=== PATIENT | male | born 1930 | race Caucasian/White ===

== ENCOUNTER 2017-11-10 09:44 | Emergency (ER) | payer OTHER ==
[~2017-11-10] VITALS: Ht 167.6 cm; Wt 56.7 kg
[~2017-11-10 09:44] MED LIST: AMLODIPINE10 MG PO; ASPIRIN EC81 M1 PO; ATORVASTATIN CA80 M1 PO; CALCIUM + D SO1 EACH PO; COZAAR 25MG TAB25 MG PO; COZAAR50 M1 PO; ELIGARD22.5 M1 IM; HYDRODIURIL 2525 MG PO; K-DUR 20MEQ TA20 MEQ PO; LASIX40 M1 PO; LASIX40 MG PO; REFRESH TEARS15 ML IO; TOPROL XL50 M1 PO
--- NOTE | 2017-11-10 15:48 | ED MVC/FALL/TRAUMA COMPLAINT ---
History of Present Illness General Chief Complaint: Fall Stated Complaint: FALL LAST WEDNESDAY SEEN LAST WEDNESDAY Source: patient, family, old records Exam Limitations: no limitations Vital Signs & Intake/Output Vital Signs & Intake/Output Vital Signs Date Time Temp Pulse Resp B/P B/P Pulse O2 O2 Flow FiO2 Mean Ox Delivery Rate 11/10 1721 98.2 77 18 156/84 98 Room Air 11/10 1551 97.7 720 18 170/76 98 Room Air ED Intake and Output 11/11 0000 11/10 1200 Intake Total 0 Output Total Balance 0 Intake, Oral 0 Patient 125 lb Weight Weight Reported by Patient Measurement Method Allergies Coded Allergies: rifampin (Severe, CAUSED RENAL FAILURE - DIALYSIS PER MED LIST 06/27/17) Reconcile Medications Aspirin (Ecotrin*) 81 MG TABLET.DR 1 TAB PO DAILY heart (Reported) Atorvastatin Calcium 80 MG TABLET 1 TAB PO DAILY cholestrol (Reported) Calcium Carb/Vitamin D3/Vit K1 (Calcium + D Soft Chewable Tab) 500 MG CALCIUM-1, 000 UNIT-40 MCG TAB.CHEW 1 TAB PO DAILY SUPPLEMENT (Reported) Carboxymethylcellulose Sodium (Refresh Tears) 0.5 % DROPS 1 GTT IO DAILY TEARS (Reported) Furosemide (Lasix) 40 MG TABLET 1.5 TAB PO DAILY CHF Leuprolide Acetate (Eligard) 22.5 MG (3 MONTH) SYRINGE 1 INJ IM [id number] PROSTATE CANCER (Reported) Losartan Potassium (Cozaar) 50 MG TABLET 1 TAB PO DAILY HTN Metoprolol Succ XL (Toprol Xl) 50 MG TAB 50 MG PO DAILY HTN (Reported) Tramadol HCl 50 MG TABLET 0.5 TAB PO BIDP PRN pain Triage Note: 87 YO MALE TO TRIAGE C/O PAIN TO R SHOULDER/CLAVICAL AREA. STATES HE WAS SEEN WEDNESDAY AFTER A FALL AND WAS TOLD HE HAD R SIDED RIB FRACTURES, PT DENIES PAIN TO RIB AREA. STATES HAS BEEN USING A HEATING PAD AND MOTRIN WITHOUT RELIEF. Triage Nurses Notes Reviewed? yes Onset: Abrupt Duration: day(s): (5), constant Timing: recent history Severity: moderate Severity Numbers: 6 Injuries/Fall Location: upper extremity Method of Injury: fall Loss of Consciousness: no loss of consciousness Modifying Factors: Improves With: rest. Worsens With: movement, palpation. Associated Symptoms: deneis HPI: 87-year-old male past medical history of aortic aneurysm, coronary artery disease, hypertension presents with daughter for continued pain x 5 days s/p fall onto r shoulder. was diagnosed with right 5/6th rib fx. xrays of shoulder and lumbar spine were unremarkable. no other injury from fall, no new trauma. no neck or back pain, no pain with breathing, no hemoptysis. no elbow wrist or hand pain,no numbness no tingling. pain in shoulder worse with rom. has been taking tylneol with no effect. (Jone Preston) Past History Travel History Traveled to [place] past 21 day No Medical History Any Pertinent Medical History? 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 No (Jone Preston) Review of Systems Review of Systems Constitutional: Reports: see HPI. Comments Review of systems: See HPI, All other systems negative. Constitutional, no chills no fever, no malaise HEENT: no sore throat no congestion Cardiovascular: No chest pain , no palpitation Skin: no rashes, no change in skin Respiratory: No dyspnea no cough no sputum no hemoptysis GI: No nausea no vomiting, Muscle skeletal: joint pain, no back pain, no neck pain, Neurologic: , no headache Heme/endocrine: No bruising (Jone Preston) Physical Exam Physical Exam General Appearance: well developed/nourished, awake Comments: Well-developed well-nourished person in no acute distress HEENT: Normal EENT exam; PERRL, EOMI HEAD is atraumatic. moist mucous membranes. Neck: Supple, nontender normal range of motion without pain or tenderness Back: Nontender, Full range of motion Cardiovascular: Regular rate and rhythms no murmurs rub Respiratory: Chest nontender.There were no bony deformities, no asymmetry. No respiratory distress. Patient speaking in full complete sentences. Breath sounds clear to auscultation bilaterally: NO W/R/R Abdomen: Soft, nontender nondistended, no appreciable organomegaly. Normal bowel sounds. No rebound/guarding Shoulder: Tender to palpation over the distal aspect of the right clavicle Stable. Ecchymosis noted to the anterior right shoulder mild swelling noted to the anterior shoulder obvious deformity Limited range of motion secondary to pain Elbow: Atraumatic/stable. FROM. No laxity Upper arm/Forearm: Atraumatic. Nontender. No edema, 5 out of 5 food porter strength noted to bilateral upper extremities Hand/Wrist: Atraumatic/stable. Skin intact. FROM Pulses: Normal/equal radial pulses bilaterally. Brisk cap refill lower Extremity: No edema, full range of motion of extremities, 5 out of 5 strength noted to bilateral lower extremities Neuro: Alert oriented x3, motor sensory normal, cranial nerves II through XII grossly intact. There were no obvious focal neurologic abnormalities. Skin: No appreciable rash on exposed skin, skin is warm and dry. Psych: Mood and affect is normal, memory and judgment is normal. Core Measures ACS in differential dx? No CVA/TIA Diagnosis No Sepsis Present: No Sepsis Focused Exam Completed? No (Joel MORRISON,Jone) Progress Differential Diagnosis: abd injury, C/T/L spine injury, ext injury, pnemothorax, spinal cord injury Plan of Care: Orders Procedure Date/time Status Durable Medical Equipment 11/10 162 Active Patient reports to feeling improved with tramadol old records including the patient's x-rays of the right shoulder ribs and lower back were reviewed, I discussed with the patient and his daughter the incidental findings on the CAT scan today which they're aware of both the nodules and thoracic aortic aneurysm. Advise close follow-up with orthopedist Crispin sling applied they feel comfortable with plan and return precautions were discussed at length. Diagnostic Imaging: Viewed by Me: CT Scan. Discussed w/RAD: CT Scan. Radiology Impression: PATIENT: SHANEL COX PRESENT AGE: 87 PATIENT ACCOUNT NO: [id number] : [birth year] LOCATION: [facility] ORDERING PHYSICIAN: Jone MORRISON SERVICE DATE: 11/10/17-1600 EXAM TYPE: CAT - CT CHEST WO IV CONTRAST EXAMINATION: CT CHEST WITHOUT CONTRAST CLINICAL INFORMATION : Fall. Pain. Fracture of right clavicle. COMPARISON: None TECHNIQUE: Multidetector volumetric CT imaging of the chest was done. Axial MIP volume rendering provided. Sagittal and coronal reformatted images were obtained. DLP: 216.57 mGy-cm FINDINGS: LUNGS: There is subpleural reticular opacities at the right lung apex. There is scarring and mild bronchiectasis of the right upper lobe. There is subpleural reticular opacities at both lung bases greater on right than left with scattered groundglass opacity. There is small subpleural nodules at the right lung base. 1. Right middle lobe axial image 23 (3) 3 mm. 2. Right lower lobe subpleural lung image 30 (3) 5 mm nodule. 3. Right lower lobe subpleural lung, image 30 (3), 6 mm nodule. 4. Lingula left lung, subpleural lung image 36 (3) 5 mm. There are a few additional smaller nodules at lung bases bilateral. No large dense consolidation. MEDIASTINUM: Vascular stent at the root of the aorta. The ascending aorta is dilated measuring 4.4 cm transverse just above the aortic stent. There is atherosclerotic vascular wall calcifications of the aorta. Atherosclerotic vascular wall calcification of the coronary arteries. Pacemaker leads in right atrium and right ventricle. PLEURA: There is no pleural effusion. No pleural mass or thickening. AXILLA: No lymphadenopathy. UPPER ABDOMEN: Hepatic cyst in right lobe of liver measuring 5.4 x 2.8 x 2.6 cm. There are multiple renal cysts bilateral. OSSEOUS STRUCTURES: Degenerative spondylosis of spine with multilevel endplate spurring of the vertebrae. No acute fracture. No fracture of the clavicle evident. IMPRESSION: 1. No acute abnormality CT scan of the chest. No fracture. 2. Ascending aortic stent of the root of the aorta with aneurysm, dilated ascending aorta measuring 4.4 cm transverse. 3. Small bilateral lung nodules. Largest measuring 6 mm in right lower lobe. Various management parameters for solitary pulmonary nodules are in the literature. According to the UPDATED 2017 Fleischner Society recommendations, the advised follow-up imaging for solid nodules < 6 mm is: LOW RISK PATIENT: No routine follow-up. HIGH RISK PATIENT: Optional CT at 12 months. Reference: Guidelines for Management of Incidental Pulmonary Nodules Detected on CT Images: From the Fleischner Society 2017. DICTATED BY: Kirill Polk MD DATE/TIME DICTATED:1629 SOLAR ENERGY SPECIALIST:MARLO DATE/TIME TRANSCRIBED:11/10/171629 CONFIDENTIAL, DO NOT COPY WITHOUT APPROPRIATE AUTHORIZATION. <Electronically signed in Other Vendor System> SIGNED BY: Kirill Polk MD 11/10/17 0762 (Jone Preston) Departure Departure Time of Disposition: 1709 Disposition: HOME OR SELF CARE Condition: Stable Clinical Impression Primary Impression: Shoulder sprain Qualifiers: Encounter type: initial encounter Shoulder sprain type: unspecified sprain Laterality: right Qualified Code: S43.401A - Unspecified sprain of right shoulder joint, initial encounter Secondary Impressions: Aortic aneurysm Qualifiers: Aortic location: thoracic aorta Presence of rupture: without rupture Qualified Code: I71.2 - Thoracic aortic aneurysm, without rupture Lung nodules Referrals: Fernie GARCIA,Jerod Mclain MD,Flora Pike (PCP/Family) Additional Instructions: rest, ice, follow up with your pmd or orthopedist dr wood this week. sling for comfort. tylenol for pain every 8 hours. tramadol as discussed. return at anytime sooner with any concerns Departure Forms: Customer Survey General Discharge Information Prescriptions: Current Visit Scripts Tramadol HCl 0.5 TAB PO BIDP PRN pain #10 TAB (Jone Preston) PA/COBBLER UPPER Co-Sign Statement Statement: ED Attending supervision documentation- [] I saw and evaluated the patient. I have also reviewed all the pertinent lab results and diagnostic results. I agree with the findings and the plan of care as documented in the PA's/COBBLER UPPER's documentation. [X] I have reviewed the ED Record and agree with the PA's/COBBLER UPPER's documentation. [] Additions or exceptions (if any) to the PAs/COBBLER UPPER's note and plan are summarized below: [] (Serjio GARCIA,Hanny)
--- NOTE | 2017-11-10 16:55 | CT SCAN REPORT ---
EXAMINATION: CT CHEST WITHOUT CONTRAST CLINICAL INFORMATION: Fall. Pain. Fracture of right clavicle. COMPARISON: None TECHNIQUE: Multidetector volumetric CT imaging of the chest was done. Axial MIP volume rendering provided. Sagittal and coronal reformatted images were obtained. DLP: 216.57 mGy-cm FINDINGS: LUNGS: There is subpleural reticular opacities at the right lung apex. There is scarring and mild bronchiectasis of the right upper lobe. There is subpleural reticular opacities at both lung bases greater on right than left with scattered groundglass opacity. There is small subpleural nodules at the right lung base. 1. Right middle lobe axial image 23 (3) 3 mm. 2. Right lower lobe subpleural lung image 30 (3) 5 mm nodule. 3. Right lower lobe subpleural lung, image 30 (3), 6 mm nodule. 4. Lingula left lung, subpleural lung image 36 (3) 5 mm. There are a few additional smaller nodules at lung bases bilateral. No large dense consolidation. MEDIASTINUM: Vascular stent at the root of the aorta. The ascending aorta is dilated measuring 4.4 cm transverse just above the aortic stent. There is atherosclerotic vascular wall calcifications of the aorta. Atherosclerotic vascular wall calcification of the coronary arteries. Pacemaker leads in right atrium and right ventricle. PLEURA: There is no pleural effusion. No pleural mass or thickening. AXILLA: No lymphadenopathy. UPPER ABDOMEN: Hepatic cyst in right lobe of liver measuring 5.4 x 2.8 x 2.6 cm. There are multiple renal cysts bilateral. OSSEOUS STRUCTURES: Degenerative spondylosis of spine with multilevel endplate spurring of the vertebrae. No acute fracture. No fracture of the clavicle evident. IMPRESSION: 1. No acute abnormality CT scan of the chest. No fracture. 2. Ascending aortic stent of the root of the aorta with aneurysm, dilated ascending aorta measuring 4.4 cm transverse. 3. Small bilateral lung nodules. Largest measuring 6 mm in right lower lobe. Various management parameters for solitary pulmonary nodules are in the literature. According to the UPDATED 2017 Fleischner Society recommendations, the advised follow-up imaging for solid nodules < 6 mm is: LOW RISK PATIENT: No routine follow-up. HIGH RISK PATIENT: Optional CT at 12 months. Reference: Guidelines for Management of Incidental Pulmonary Nodules Detected on CT Images: From the Fleischner Society 2017.
[2017-11-10] MEDS ORDERED: TRAMADOL HCL50 M1 PO (17:11)
[2017-11-10 17:21] VITALS: BP 156/84
== END 2017-11-10 17:26 ==
LOC: ERH 09:44
DX: S43.401A Unspecified sprain of right shoulder joint, initial encounter (principal); I71.2 Thoracic aortic aneurysm, without rupture; R91.1 Solitary pulmonary nodule; W19.XXXA Unspecified fall, initial encounter; Y93.9 Activity, unspecified; Y92.9 Unspecified place or not applicable

== ENCOUNTER 2017-12-18 09:18 | Emergency (ER) | payer OTHER ==
[~2017-12-18] VITALS: Ht 167.6 cm; Wt 56.7 kg
[~2017-12-18 09:18] MED LIST changes: -ELIGARD22.5 M1 IM; +ELIGARD22.5 M1 INJ; -REFRESH TEARS15 ML IO; +REFRESH TEARS15 ML OU; +TRAMADOL HCL50 M1 PO
--- NOTE | 2017-12-18 09:22 | ED AMS/SEIZURE/WEAK/DIZZY ---
History of Present Illness General Chief Complaint: Dizziness Stated Complaint: DIZZY Source: patient, old records Exam Limitations: no limitations Vital Signs & Intake/Output Vital Signs & Intake/Output Vital Signs Date Time Temp Pulse Resp B/P B/P Pulse O2 O2 Flow FiO2 Mean Ox Delivery Rate 12/18 1203 98.0 52 18 150/69 97 Room Air 12/18 0933 98 Room Air 12/18 0926 97.6 66 17 157/74 98 Room Air Allergies Coded Allergies: rifampin (Severe, CAUSED RENAL FAILURE - DIALYSIS PER MED LIST 06/27/17) Reconcile Medications Aspirin (Ecotrin*) 81 MG TABLET.DR 1 TAB PO QPM HEART/BLOOD (Reported) Atorvastatin Calcium 80 MG TABLET 1 TAB PO QPM cholestrol (Reported) Calcium Carb/Vitamin D3/Vit K1 (Calcium + D Soft Chewable Tab) (Unknown Strength ) TAB.CHEW (Unknown Dose) PO BID SUPPLEMENT (Reported) Carboxymethylcellulose Sodium (Refresh Tears) 0.5 % DROPS 1 GTT OU PRN LUBRICANT (Reported) Docusate Sodium (Colace) 100 MG CAPSULE 1 CAP PO DAILY STOOL SOFTENER ( Reported) Furosemide (Lasix) 40 MG TABLET 1 TAB PO DAILY DIURETIC (Reported) Ipratropium [place] (Unknown Strength) SPRAY (Unknown Dose) NASB PRN NASAL DRIP (Reported) Leuprolide Acetate (Eligard) (Unknown Strength) SYRINGE (Unknown Dose) INJ [id number] PROSTATE CANCER (Reported) Losartan Potassium (Cozaar) 50 MG TABLET 1 TAB PO DAILY HTN Meclizine HCl 25 MG TABLET 1 TAB PO TIDPRN PRN DIZZINESS Metoprolol Succ XL (Toprol Xl) 50 MG TAB 50 MG PO DAILY HTN (Reported) Multiple Vitamin (Multivitamins) 1 EACH TABLET 1 TAB PO DAILY SUPPLEMENT ( Reported) Scopolamine (Transderm-Scop) 1 MG/3 DAY PATCH.TD.3 1 PAT TOP AD PRN DIZZINESS APPLY BEHIND THE EAR EVERY THREE DAYS FOR DIZZINESS Triage Nurses Notes Reviewed? 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), prostate cancer s/p chemo, thrombocytopenia (20 years ago), acture renal failure after Rifampin ( resolved, 20 years ago) and C dif colitis It is noted through old records the patient was evaluated at [facility] emergency room in early October for concerns of a fall where imaging indicates that patient's last diameter of aorta was noted to be 4.4 cm and patient was diagnosed with rib fractures He states that yesterday he was in his normal state of health patient states that approximate 1 AM patient got up to urinate and while walking felt suddenly lightheaded and dizzy and off-balance where no injury occurred no loss consciousness occurred patient states he felt better lying down symptoms still persisted this morning every TIME patient states up and walks. Symptoms are hours relief with rest Patient denies any fever chills headache blurred vision slurred speech facial droop chest pain shortness of breath arm pain jaw pain dysuria photophobia chest pain and is otherwise without complaints. Patient denies any room spinning sensation (Jone Adams) Past History Medical History Any Pertinent Medical History? 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 No (Jone Adams) Review of Systems Review of Systems Constitutional: Reports: see HPI. EENTM: Reports: no symptoms. Respiratory: Reports: no symptoms. Cardiovascular: Reports: no symptoms. GI: Reports: no symptoms. Genitourinary: Reports: no symptoms. Musculoskeletal: Reports: no symptoms. Skin: Reports: no symptoms. Neurological/Psychological: Reports: no symptoms. Hematologic/Endocrine: Reports: no symptoms. Immunologic/Allergic: Reports: no symptoms. All Other Systems: Reviewed and Negative (Jone Adams) Physical Exam Physical Exam General Appearance: no apparent distress, alert, comfortable Head: atraumatic Eyes: Bilateral: normal appearance, PERRL, EOMI. 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 Yes CVA/TIA Diagnosis No Sepsis Present: No Sepsis Focused Exam Completed? No (Juliano MORRISON,Jone) Progress Differential Diagnosis: arrythmia, anemia, benign positional vertigo, CVA/stroke , dehydration, drug intoxication, encephalitis, electrolyte imbalance, GI bleed, hypoglycemia, hypoxia, intracranial Hem., intracranial mass/tumor, labrynthitis, meningitis, Meniere's disease, migraine [place]LS[place], multiple sclerosis, pneumonia, postural hypotension, presyncope, post-traumatic vertigo, sepsis, seizure disorder, subarachnoid Hem., UTI/pyelo, vertebrobasilar insuff Plan of Care: Orders Procedure Date/time Status Heart Healthy Diet 12/18 L Active MISTAKE 12/19 931 Active TROPONIN LEVEL 12/19 931 Complete MAGNESIUM 12/19 931 Complete COMPREHENSIVE METABOLIC PANEL 12/18 09 Complete CBC WITHOUT DIFFERENTIAL 12/19 931 Complete EKG 12/18 09 Active Laboratory Tests 12/18/17 0940: Anion Gap 11, Estimated GFR 57 L, BUN/Creatinine Ratio 27.5 H, Glucose 107 H, Calcium 9.4, Magnesium 2.2, Total Bilirubin 0.8, AST 25, ALT 32, Alkaline Phosphatase 104, Troponin I 0.05, Total Protein 7.2, Albumin 3.7, Globulin 3.5, Albumin/Globulin Ratio 1.1, CBC w Diff NO MAN DIFF REQ, RBC 4.20 L, MCV 95.6 H , MCH 31.5 H, MCHC 33.0, RDW 16.8 H, MPV 8.3, Gran % 61.2, Lymphocytes % 24.9, Monocytes % 7.5, Eosinophils % 6.0 H, Basophils % 0.4, Absolute Granulocytes 3.9, Absolute Lymphocytes 1.6, Absolute Monocytes 0.5, Absolute Eosinophils 0.4, Absolute Basophils 0 Patient upon initial evaluation was resting comfortably at bedside no apparent distress and denies any symptoms. tearoom host/hostess placed patient's vital signs were unremarkable Patient had negative orthostatic measurements in the emergency room, it was noted to be by nursing staff that patient did ambulate with mild necessity of assistance and felt similar symptoms of lightheaded sensation occur 1 patient ambulated to bathroom. Patient currently is eating a meal and will be reevaluated After patient ate a meal he was reevaluated by me under my supervision patient had normal steady gait walking fdc down the emergency room and back with a walker and required no assistance. Patient states he did not have any dizziness and was asymptomatic. Family is concern the patient lives in a private residence by himself Medically patient shows no acute abnormalities I discussed patient with case management who will provide home health aide for patient however did discuss long-term plans with patient and family members that living in a private residence most likely would need to be changed. Patient was strongly advised on many occasions to continue and always use a walker for fall prevention Please also note that patient in a seated position was supervised by me in which he required no assistance to get up and establish WEIGHT BEARING position alongside THE walker Discussed disposition plan with DR HENDERSON who agrees and is aware Patient family member agreed with plan and had no questions upon discharge Diagnostic Imaging: Viewed by Me: CT Scan. Radiology Impression: no acute abnormality Initial ED EKG: AV PACED 64 BPM, Prior EKG: unchanged Comments: PATIENT: SHANEL COX PRESENT AGE: 87 PATIENT ACCOUNT NO: [id number] : [birth year] LOCATION: [facility] ORDERING PHYSICIAN: Jone MORRISON SERVICE DATE: 12/18/17 EXAM TYPE: CAT - CT HEAD WO IV CONTRAST EXAMINATION: CT HEAD WITHOUT CONTRAST CLINICAL INFORMATION: Dizziness, unsteady gait. COMPARISON: CT of the head done on 08/13/2016. TECHNIQUE: Contiguous axial imaging was performed from the skull base to vertex without intravenous administration of contrast. DLP: 612.13 mGy-cm FINDINGS: There is no evidence of acute intracranial hemorrhage or territorial infarction. No abnormal mass effect or midline shift is seen. Dias to white matter differentiation is well preserved. No extra-axial fluid collections are identified. The ventricles are normal in size. Age-appropriate moderate diffuse cortical atrophy and moderate chronic microvascular deep white matter ischemic changes are present. 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 The osseous structures and soft tissues are normal. The mastoid air cells and visualized portions of the paranasal sinuses are well aerated. IMPRESSION: No acute intracranial pathology. DICTATED BY: Lissa Sanchez MD DATE/TIME DICTATED:12/18/171434 EXCHANGE ENGINEER:MARLO DATE/TIME TRANSCRIBED:12/18/171434 (Jone Adams) Departure Departure Disposition: HOME OR SELF CARE Condition: Stable Clinical Impression Primary Impression: Dizziness Secondary Impressions: Cerumen impaction Referrals: Rayne GARCIA,Flora Pike (PCP/Family) Additional Instructions: As discussed always use a home walker for fall prevention drink plenty of water for hydration begin [id number] Debrox for EAR WAX IMPROVEMENT, begin the prescription of meclizine and scopolamine for dizziness. Follow-up on Wednesday with your doctor if symptoms worsen or if YOU develop any new concerning symptoms return to emergency room. Departure Forms: Customer Survey General Discharge Information Prescriptions: Current Visit Scripts Meclizine HCl 1 TAB PO TIDPRN PRN DIZZINESS #15 TAB Scopolamine (Transderm-Scop) 1 PAT TOP AD PRN DIZZINESS #9 PAT APPLY BEHIND THE EAR EVERY THREE DAYS FOR DIZZINESS (Jone Adams) PA/PEDIATRIC PSYCHIATRIST Co-Sign Statement Statement: ED Attending supervision documentation- x I saw and evaluated the patient. I have also reviewed all the pertinent lab results and diagnostic results. I agree with the findings and the plan of care as documented in the PA's/PEDIATRIC PSYCHIATRIST's documentation. [] I have reviewed the ED Record and agree with the PA's/PEDIATRIC PSYCHIATRIST's documentation. [] Additions or exceptions (if any) to the PAs/PEDIATRIC PSYCHIATRIST's note and plan are summarized below: [] (Esther GARCIA,Bryce)
[2017-12-18 10:04] LABS: ABSOLUTE BASOPHIL COUNT 0 /CUMM (0.0-0.2); ABSOLUTE EOSINOPHIL COUNT 0.4 /CUMM (0.0-0.7); ABSOLUTE GRANULOCYTE CT 3.9 /CUMM (1.4-6.5); ABSOLUTE LYMPH COUNT 1.6 /CUMM (1.2-3.4); ABSOLUTE MONOCYTE COUNT 0.5 /CUMM (0.10-0.60); BASOPHIL % 0.4 % (0.0-2.0); GRANULOCYTE % 61.2 % (42.2-75.2); HEMATOCRIT 40.2 % (42-52); MEAN CORPUSCULAR HGB 31.5 PG (27.0-31.0); MEAN CORPUSCULAR VOLUME 95.6 FL (80.0-94.0); MEAN PLATELET VOLUME 8.3 FL (7.4-10.4); PLATELET COUNT 100 /CUMM (130-400); RBC DISTRIBUTION WIDTH 16.8 % (11.5-14.5); WHITE BLOOD CELL COUNT 6.4 /CUMM (4.8-10.8)
[2017-12-18] MEDS ORDERED: LASIX40 M1 PO (13:03)
[2017-12-18] MEDS ORDERED: MULTIVITAMINS1 EAC9 PO (13:03)
[2017-12-18] MEDS ORDERED: COLACE100 M1 PO (13:04)
[2017-12-18] MEDS ORDERED: IPRATROPIUM BRO15 M1 NASB (13:06)
--- NOTE | 2017-12-18 14:41 | CT SCAN REPORT ---
EXAMINATION: CT HEAD WITHOUT CONTRAST CLINICAL INFORMATION: Dizziness, unsteady gait. COMPARISON: CT of the head done on 08/13/2016. TECHNIQUE: Contiguous axial imaging was performed from the skull base to vertex without intravenous administration of contrast. DLP: 612.13 mGy-cm FINDINGS: There is no evidence of acute intracranial hemorrhage or territorial infarction. No abnormal mass effect or midline shift is seen. Dias to white matter differentiation is well preserved. No extra-axial fluid collections are identified. The ventricles are normal in size. Age-appropriate moderate diffuse cortical atrophy and moderate chronic microvascular deep white matter ischemic changes are present. 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 The osseous structures and soft tissues are normal. The mastoid air cells and visualized portions of the paranasal sinuses are well aerated. IMPRESSION: No acute intracranial pathology.
[2017-12-18] MEDS ORDERED: MECLIZINE HCL25 MG PO (14:48)
[2017-12-18] MEDS ORDERED: TRANSDERM-SCOP1 EAC1 TOP (14:48)
[2017-12-18 15:20] VITALS: BP 148/58
== END 2017-12-18 15:21 ==
LOC: ERH 09:18
PROVIDERS: Physician Assistant
DX: R42 Dizziness and giddiness (principal); H61.20 Impacted cerumen, unspecified ear
CPT/HCPCS: 93005; 93010